=== PATIENT | female | born 1965 | race Caucasian/White ===

== ENCOUNTER 2017-02-28 13:32 | Outpatient (CLI) ==
--- NOTE | 2017-02-28 14:19 | US ---
EXAM: THYROID ULTRASOUND HISTORY: Abnormal thyroid labs FINDINGS: Ultrasound thyroid. Real time oliver-scale ultrasound and color Doppler imaging. COMPARISON: None The right thyroid lobe measures 4.4 x 1.1 x 1.5 cm. The isthmus measures 0.34 cm. The left thyroid lobe measures 3.6 x 1.0 x 1.1 cm. In the inferior right lobe, there is a 3-4 mm mostly cystic nodule with no atypia. No other nodules were identified. The thyroid tissue was otherwise diffusely homogeneous with grossl y normal blood flow. No calcifications. IMPRESSION: Tiny inferior right lobe mostly cystic nodule with no atypia. The thyroid gland was othe rwise grossly unremarkable sonographically.
== END 2017-02-28 13:33 | disposition home or self-care (01) ==
LOC: RAD 13:32
PROVIDERS: ATTEND Family Medicine
DX: R94.6 Abnormal results of thyroid function studies (principal)